=== PATIENT | female | born 1995 ===

== ENCOUNTER 2019-03-18 02:40 | Inpatient (IN) ==
[2019-03-18] MEDS ORDERED: MAGNESIUM HYDROXIDE SUSP 30 ML UDC PO PRN (03:00)
[2019-03-18] MEDS ORDERED: ALUMINUM/MAGNESIUM SUSP 30 ML UDC PO PRN (03:00)
[2019-03-18] MEDS ORDERED: SODIUM CHLORIDE 0.65% NA SOLN 45 ML (OCEAN) PRN (03:00)
[2019-03-18] MEDS ORDERED: BISMUTH SUBSALICYLATE PER ML OMNICELL CHARGE PO PRN (03:00)
[2019-03-18] MEDS ORDERED: NICOTINE POLACRILEX 2 MG GUM MT PRN (03:00)
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
[2019-03-18] MEDS: NICOTINE 7 MG/24 HR TDSY TD SCH (10:52)
[2019-03-18] MEDS: lamoTRIgine 25 MG TAB PO SCH (12:11)
[2019-03-19] MEDS ORDERED: SERTRALINE HCL 50 MG TABLET PO SCH (09:00)
[2019-03-19] MEDS: lamoTRIgine 25 MG TAB PO SCH (09:10)
[2019-03-19] MEDS: NICOTINE 7 MG/24 HR TDSY TD SCH (09:11)
[2019-03-19] MEDS: ACETAMINOPHEN 325 MG TAB PO PRN (12:37)
--- NOTE | 2019-03-19 15:26 | Psychiatric Progress Note ---
Date of Service March 19, 2019 Impression / Recommendations (1) Depression: 03/18 - Reviewed the differential, including bipolar disorder. Patient has a strong family history of bipolar disorder first degree relatives, and endorses episodes of manic symptoms, but does not meet full criteria for ángel or even hypomania based on the duration of these episodes (maximum 2 days). Definitive diagnosis further complicated by polysubstance use, which is ongoing. We discussed treatment options, including a trial of an SSRI antidepressant to target depressive and anxiety symptoms (which she has never had, as she was initially treated with an SNRI and an atypical antipsychotic) either alone with close monitoring for activation/mood destabilization, or along with a mood stabilizer. We specifically discussed a trial of lamotrigine and sertraline, reviewed the risks, benefits, and side effects of each, and she was provided with up-to-date patient hand outs on the medications. She agreed to a trial of both medications, and will start 25 mg sertraline today, to increase to 50 mg tomorrow. Start lamotrigine 25 mg daily s and follow standard dose titration, increasing to 50 mg daily in 2 weeks. Reviewed risk of Burch-Rito syndrome and need to report any rashes to staff immediately. -Get collateral information from the patient's mother regarding mood symptoms to help clarify diagnosis. -Request records from [facility] psychiatric unit where she was hospitalized in 2018, and [facility] where she has been seen for outpatient care in the past. -Family meeting with mother. Reviewed recommendations that guns in the home be secured so the patient will not have access to them. -Refer for outpatient treatment; patient states preference to return to [facility]. -Encourage group attendance and participation, work on healthy coping skills and discharge safety plan. 03/19 - Pt agreeable to titration of sertraline to 50mg tomorrow morning; continue lamotrigine at 25mg daily - Family meeting with mother scheduled for 03/21 - Limited group participation today as not feeling well physically; encourage engagement in groups as patient feels able (2) Anxiety: 03/18 -anxiety NOS, with symptoms of JANET, panic symptoms that do not quite rise to the level of panic attacks, and subsyndromal PTSD. -Reviewed that first line treatment is an SSRI antidepressant, which she has never tried before. Start sertraline as above. -Work on coping skills for managing acute anxiety. -Encourage abstinence from substances, as can worsen anxiety. -Patient states hydroxyzine is not effective for her, and requested lorazepam. Reviewed that benzodiazepines are contraindicated given her substance use, as well as the risks of benzodiazepine use and preference to avoid medications that are addictive or abusable. Reviewed other options for as needed medications for high anxiety, and she agreed to a trial of propanolol. Start 10 mg twice daily as needed. Monitor blood pressure, which is in the normal range currently. 03/19 - As above, sertraline titrated to 50mg starting tomorrow - Encourage development of healthy and effective coping strategies through group participation (3) Cocaine abuse: 03/18 -patient reports rare cocaine use, but UDS positive and likely contributing to anxiety and depression. Reviewed risks of use and recommendations to abstain. -Refer for outpatient dual diagnosis treatment as above. (4) Cannabis abuse: 03/18 -patient reports regular cannabis use for the past 3 years, and feels it is helpful for sleep and appetite. Discussed that it does not appear to be sufficiently helpful, as are still impaired, and that the symptoms can be addressed with medication and therapy. -Reviewed risks of ongoing cannabis use, including a motivation, apathy, psychosis, worsening mood, interactions with medications, and legal problems. Reviewed recommendations to abstain for the time being until she stabilizes, and she indicates willingness to do this. (5) Heroin abuse: 03/18 -history of opiate addiction, last use about 1 year ago. -Avoid controlled substances given the high risk of abuse/misuse/negative outcomes. (6) Sexually active: 03/18 - Has an OB-THERAPIST RADIATION (Dr. Gomez) in [facility] and will need to f/u with him for contraception and annual exam. Risk Factors Assessment Male: No : Yes Do You Have Access To A Gun?: Yes (in parents' house) Health Problems: No Mental Health Diagnoses: Yes Substance Use Disorders: Yes Previous Attempt: No Family History of Suicide: No Previous Psychiatric Hospitalization: Yes Hopelessness: No Smoker: Yes Protective Factors Assessment : No Responsible for Young Children: No Employed: No Stable Relationships: No Supportive Family: Yes Good Rapport with Provider: No Interval History Identifying Information TRINITY RIVAS is a 23-year-old F who currently lives in [place], [place], has a history of depression, anxiety, and heroin abuse, and was admitted on 03/18/19 03:44 on a 201 voluntary commitment for depression and SI. Chief Complaint "I'm ok. I just haven't been feeling very good today." Review of Systems Notes Constitutional: reports current headache; improvement noted since earlier today Cardiovascular: denied Respiratory: denied Gastrointestinal: denied Neurological: denied Psychiatric: denies symptoms other than stated above Total of at least 10 systems reviewed, pertinent positives as above and in HPI. Sleep Information Total Hours of Sleep: 8 Sleep Comments: admit at 0341 Meal Information Percent Meal Consumed - Breakfast: 100 Percent Meal Consumed - Lunch: 75 Percent Meal Consumed - Dinner: 100 Nutrition Comment: pt. asleep Meal dated, labeled and refrigerated Subjective Subjective Patient was seen & assessed and interval progress reviewed with treatment team. Staff reports the patient has been in contact with her family and is willing to schedule a family meeting with her mom. Patient was seen today to assess progress since admission. Pt states she is feeling "better" since initial mood at admission; however, she reports she is not feeling well physically today. Pt reports a severe headache, which she states is not uncommon for her. She does not believe that her physical symptoms are related to initiation of medications. Mood is reportedly "better" - rating it a "6-7" out of 10 (10=best). Pt reports a comfortable mood for her is "about an 8, I think." Pt denies any destabilization or activation with medication adjustments. Pt denies suicidality today. She denies other needs or concerns presently. Physical Exam Psychiatric Orientation: alert, oriented x 3 and cooperative (and pleasant) Apperance: appropriately dressed (casually), appropriately groomed, + disheveled (mildly, as just awoken from sleep) and appeared stated age Eye Contact: good eye contact Motor Behavior: no abnormal motor movements (observed while laying in bed) Speech: normal rate/rhythm/volume of speech Affect: + depressed affect (reporting improvement since admission) and + blunted affect (mildly, appearing somewhat fatigued) Mood: no depressed mood and no anxious mood "I'm feeling better." Thought Process: goal directed thought process, linear/logical thought process and clear/coherent thought process Thought Content: reality based without delusions Suicidal Thoughts: denies suicidal thoughts Homicidal Thoughts: denies homicidal thoughts Hallucinations: no auditory hallucinations and no visual hallucinations Cognition: recent memory grossly intact, attention grossly intact and language grossly intact Estimated Intelligence: consistent with education level Insight: + fair insight Judgement: + fair judgement Vital Signs (Past 24 Hours) Last Vital Signs Temp 36.7 C 03/19/19 06:26 Pulse 60 03/19/19 06:26 Resp 17 03/19/19 06:26 BP 108/73 03/19/19 06:26 Results & Data Current Inpatient Medications Current Inpatient Medications: Current Inpatient Medications Acetaminophen (Tylenol) 650 mg PO Q4H PRN PRN Reason: Headache or Minor Fever Stop: 04/17/19 02:59 Last Admin: 03/19/19 12:37 Dose: 650 mg Documented by: Al Hydrox/Mg Hydrox/Simethicone (Maalox) 30 ml PO Q4H PRN PRN Reason: GI Upset Stop: 04/17/19 02:59 Bismuth Subsalicylate (Kaopectate) 15 ml PO PRN PRN PRN Reason: Loose Stool Stop: 04/17/19 02:59 Hydroxyzine HCl (Vistaril) 50 mg PO HSZ PRN PRN Reason: Insomnia Stop: 04/17/19 02:59 Last Admin: 03/18/19 21:19 Dose: 50 mg Documented by: Lamotrigine (Lamictal) 25 mg PO QAM [facility] Stop: 04/17/19 11:14 Last Admin: 03/19/19 09:10 Dose: 25 mg Documented by: Magnesium Hydroxide (Milk Of Magnesia) 30 ml PO DAILY PRN PRN Reason: Heartburn Stop: 04/17/19 02:59 Miscellaneous (Remove Nicoderm Patch) 1 ea N/A DAILY@2200 [facility] Stop: 04/17/19 21:59 Last Admin: 03/18/19 21:17 Dose: Not Given Documented by: Nicotine (Nicoderm Cq) 7 mg TD QAM [facility] Stop: 04/17/19 08:59 Last Admin: 03/19/19 09:11 Dose: Not Given Documented by: Nicotine Polacrilex (Nicorette 2mg) 1 piece MT UD PRN PRN Reason: Nicotine Withdrawal Stop: 04/17/19 02:59 Last Admin: 03/19/19 12:38 Dose: 1 piece Documented by: Propranolol HCl (Inderal) 10 mg PO BID PRN PRN Reason: panic Stop: 04/17/19 20:59 Sertraline HCl (Zoloft) 25 mg PO QAM [facility] Stop: 04/18/19 08:59 Last Admin: 03/19/19 09:11 Dose: 25 mg Documented by: Sodium Chloride (Dade Nasal) 1 - 2 sprays NA PRN PRN PRN Reason: Nasal Dryness/Congestion Stop: 04/17/19 02:59 Mental Health & Subst Abuse Tx Psychiatrist Name of Psychiatrist: Aniceto Larson Psychiatrist's Date of Appointment with Psychiatrist: 04/16/19 Time of Appointment with Psychiatrist: 1:00 p.m. Psychiatric Appointment Comment: Salty Piper [place] Therapist Name of Therapist: Aniceto Gomez Therapist's Date of Therapist Appointment: 03/26/19 Time of Therapist Appointment: 12:30 p.m. (please come 15 min early, bring insurance card) Therapy Appointment Comment: [facility] Salty Weir [place] Commercial Correspondent Name of Commercial Correspondent: denies Post Discharge Appointments Primary Care Physician Name Of Family Doctor: denies Specialist Name of Specialist: [facility] [employer]STATION MAINTENANCE TECHNICIAN [facility] Phone Number for Specialist: [phone] Date of Appointment with Specialist: 04/04/19 Time of Appointment with Specialist: 9:30 a.m. Specialty Appointment Comment: [address] [place], [place] [address] [address] Contact Information Discharge Discharge [address]: [address] [place] [address] CPT Code CPT Code 96553 (1) Depression Depression Type: unspecified Qualified Code(s): F32.9 - Major depressive disorder, single episode, unspecified
[2019-03-19] MEDS: PROPRANOLOL HCL 10 MG TAB PO PRN (21:35)
[2019-03-20] MEDS: lamoTRIgine 25 MG TAB PO SCH (08:52)
[2019-03-20] MEDS: NICOTINE 7 MG/24 HR TDSY TD SCH (08:52)
[2019-03-20] MEDS ORDERED: SERTRALINE HCL 50 MG TABLET PO SCH (09:00)
[2019-03-20] MEDS: PROPRANOLOL HCL 10 MG TAB PO PRN (11:38)
[2019-03-20] MEDS ORDERED: BACITRACIN OINT 15 GM TUBE EXT PRN (11:46)
--- NOTE | 2019-03-20 11:49 | Psychiatric Progress Note ---
Date of Service March 20, 2019 Impression / Recommendations (1) Depression: 03/18 - Reviewed the differential, including bipolar disorder. Patient has a strong family history of bipolar disorder first degree relatives, and endorses episodes of manic symptoms, but does not meet full criteria for ángel or even hypomania based on the duration of these episodes (maximum 2 days). Definitive diagnosis further complicated by polysubstance use, which is ongoing. We discussed treatment options, including a trial of an SSRI antidepressant to target depressive and anxiety symptoms (which she has never had, as she was initially treated with an SNRI and an atypical antipsychotic) either alone with close monitoring for activation/mood destabilization, or along with a mood stabilizer. We specifically discussed a trial of lamotrigine and sertraline, reviewed the risks, benefits, and side effects of each, and she was provided with up-to-date patient hand outs on the medications. She agreed to a trial of both medications, and will start 25 mg sertraline today, to increase to 50 mg tomorrow. Start lamotrigine 25 mg daily s and follow standard dose titration, increasing to 50 mg daily in 2 weeks. Reviewed risk of Burch-Rito syndrome and need to report any rashes to staff immediately. -Get collateral information from the patient's mother regarding mood symptoms to help clarify diagnosis. -Request records from [facility] psychiatric unit where she was hospitalized in 2018, and [facility] where she has been seen for outpatient care in the past. -Family meeting with mother. Reviewed recommendations that guns in the home be secured so the patient will not have access to them. -Refer for outpatient treatment; patient states preference to return to [facility]. -Encourage group attendance and participation, work on healthy coping skills and discharge safety plan. 03/19 - Pt agreeable to titration of sertraline to 50mg tomorrow morning; continue lamotrigine at 25mg daily - Family meeting with mother scheduled for 03/21 - Limited group participation today as not feeling well physically; encourage engagement in groups as patient feels able 03/20 - Sertraline discontinued due to concern that initiation of the medication may be contributing to patient's suicidal urges and self-harm episode - Continue lamotrigine 25mg daily for now - Family meeting with mother is scheduled for 03/21 - Continue to gather collateral information to clarify diagnosis (2) Anxiety: 03/18 -anxiety NOS, with symptoms of JANET, panic symptoms that do not quite rise to the level of panic attacks, and subsyndromal PTSD. -Reviewed that first line treatment is an SSRI antidepressant, which she has never tried before. Start sertraline as above. -Work on coping skills for managing acute anxiety. -Encourage abstinence from substances, as can worsen anxiety. -Patient states hydroxyzine is not effective for her, and requested lorazepam. Reviewed that benzodiazepines are contraindicated given her substance use, as well as the risks of benzodiazepine use and preference to avoid medications that are addictive or abusable. Reviewed other options for as needed medications for high anxiety, and she agreed to a trial of propanolol. Start 10 mg twice daily as needed. Monitor blood pressure, which is in the normal range currently. 03/19 - As above, sertraline titrated to 50mg starting tomorrow - Encourage development of healthy and effective coping strategies through group participation 03/20 - Discontinued sertraline as above - Pt requested and received propranolol after incident involving episode of self-injurious behavior (3) Cocaine abuse: 03/18 -patient reports rare cocaine use, but UDS positive and likely contributing to anxiety and depression. Reviewed risks of use and recom mendations to abstain. -Refer for outpatient dual diagnosis treatment as above. (4) Cannabis abuse: 03/18 -patient reports regular cannabis use for the past 3 years, and feels it is helpful for sleep and appetite. Discussed that it does not appear to be sufficiently helpful, as are still impaired, and that the symptoms can be addressed with medication and therapy. -Reviewed risks of ongoing cannabis use, including a motivation, apathy, psychosis, worsening mood, interactions with medications, and legal problems. Reviewed recommendations to abstain for the time being until she stabilizes, and she indicates willingness to do this. (5) Heroin abuse: 03/18 -history of opiate addiction, last use about 1 year ago. -Avoid controlled substances given the high risk of abuse/misuse/negative outcomes. (6) Self-inflicted injury: 03/20 - Patient admitted to using a broken toothbrush and broken pencil to scratch and open the skin of her left anterior forearm - She has a vertical open lesion, about 3 inches in length. Blood within the lesion is noted, but there is no active bleeding - Wound has been cleaned and dressed by nursing; bacitracin ordered for future dressing changes to prevent infection - Will remove contraband from patient's room (roommate understanding) for the remainder of the day until ability to contract for safety can be confirmed (7) Sexually active: 03/18 - Has an OB-MONITORING ANALYST (Dr. Gomez) in [facility] and will need to f/u with him for contraception and annual exam. Risk Factors Assessment Male: No : Yes Do You Have Access To A Gun?: Yes (in parents' house) Health Problems: No Mental Health Diagnoses: Yes Substance Use Disorders: Yes Previous Attempt: No Family History of Suicide: No Previous Psychiatric Hospitalization: Yes Hopelessness: No Smoker: Yes Protective Factors Assessment : No Responsible for Young Children: No Employed: No Stable Relationships: No Supportive Family: Yes Good Rapport with Provider: No Interval History Identifying Information TRINITY RIVAS is a 23-year-old F who currently lives in [place], [place], has a history of depression, anxiety, and heroin abuse, and was admitted on 03/18/19 03:44 on a 201 voluntary commitment for depression and SI. Chief Complaint [sobbing] "I need to tell on myself, I tried to do something to hurt myself. I need to talk to someone." Review of Systems Notes Constitutional: reports feeling tired Cardiovascular: denied Respiratory: denied Gastrointestinal: denied Neurological: denied Psychiatric: denies symptoms other than stated above Integumentary: self-inflicted lesion to left anterior forearm, no active bleeding but surface of skin is broken; reporting it is painful Total of at least 10 systems reviewed, pertinent positives as above and in HPI. Sleep Information Total Hours of Sleep: 8 Sleep Comments: admit at 0341 Meal Information Percent Meal Consumed - Breakfast: 50 Percent Meal Consumed - Lunch: 75 Percent Meal Consumed - Dinner: 90 Nutrition Comment: pt. asleep Meal dated, labeled and refrigerated Subjective Subjective Patient was seen & assessed and interval progress reviewed with nursing and social work. Staff reports the patient is scheduled for a family meeting with her mother tomorrow. She has been attending groups and is supportive of peers. Patient presented to the nursing station today, while this provider was sitting closest to the door. Pt stated, "I need to tell on myself, I tried to do something to hurt myself. I need to talk to someone. I don't think the medications are working." She showed this provider a excoriation/laceration to her left anterior forearm, a linear wound breaking the skin. This provider requested nursing gather material to clean and dress the wound while this provider and the patient discussed further. Pt states that she is not sure why she did it, repeating multiple times "I've never tried to hurt myself before." Pt states "I don't want to be alive" - but then verbalizes that this is confusing to her, as "I have a good life, I have a lot to live for. I don't want to , I don't know why I did it." Pt was asked her intent during the time of the injury - to which she responded, "I have no idea." She continues to cry and verbalize confusion regarding her actions. Pt states she has been having disturbing dreams involving her ex and/or her father. Patient was asked what she used to harm herself, and responded, "I used a toothbrush first, but it didn't work. Then I used a pencil, but that didn't really work either. It really hurts." Pt reiterates that the feeling that led to this action is "new, I've never tried to actually hurt myself before." Surprisingly, the patient denies suicidal ideation and continues to verbalize "I have a lot to live for." Patient's wound was cleaned and dressed by nursing and patient was escorted to the safe room at her preference. Contraband was removed from her room and patient was informed of this. She is now able to contract for safety, stating she is no longer having these urges, but prefers to be in the safe room. Staff will remain with her for a period of time to process further. Physical Exam Psychiatric Orientation: alert, oriented x 3 and cooperative Apperance: appropriately dressed (casually, in long-sleeved t-shirt and sweatpants), + disheveled (hair in messy bun) and appeared stated age Eye Contact: + poor eye contact (face down, crying into hands) Motor Behavior: steady gait and station and no abnormal motor movements Speech: normal rate/rhythm/volume of speech Affect: + anxious affect and + tearful affect Mood: + anxious mood ("I need to talk to someone, this isn't normal") Thought Process: goal directed thought process and clear/coherent thought process Thought Content: reality based without delusions Suicidal Thoughts: denies suicidal thoughts and denies suicidal intent Patient denying SI, but did have an episode of self-injury with unclear motivation - denies intent to end her life but admits to being confused by current feelings Homicidal Thoughts: denies homicidal thoughts Hallucinations: no auditory hallucinations and no visual hallucinations Cognition: attention grossly intact and language grossly intact Estimated Intelligence: consistent with education level Insight: + impaired insight Judgement: + impaired judgement (though demonstrated good judgment by informing staff of self-injury) Vital Signs (Past 24 Hours) Last Vital Signs Temp 36.8 C 03/20/19 06:00 Pulse 68 03/20/19 06:40 Resp 17 03/20/19 06:00 BP 101/68 03/20/19 06:40 Results & Data Current Inpatient Medications Current Inpatient Medications: Current Inpatient Medications Acetaminophen (Tylenol) 650 mg PO Q4H PRN PRN Reason: Headache or Minor Fever Stop: 04/17/19 02:59 Last Admin: 03/19/19 12:37 Dose: 650 mg Documented by: Al Hydrox/Mg Hydrox/Simethicone (Maalox) 30 ml PO Q4H PRN PRN Reason: GI Upset Stop: 04/17/19 02:59 Bacitracin (Bacitracin) 1 appln EXT TID PRN PRN Reason: prevent skin infection/cut Stop: 04/19/19 11:45 Bismuth Subsalicylate (Kaopectate) 15 ml PO PRN PRN PRN Reason: Loose Stool Stop: 04/17/19 02:59 Hydroxyzine HCl (Vistaril) 50 mg PO HSZ PRN PRN Reason: Insomnia Stop: 04/17/19 02:59 Last Admin: 03/18/19 21:19 Dose: 50 mg Documented by: Lamotrigine (Lamictal) 25 mg PO QAM [place] Stop: 04/17/19 11:14 Last Admin: 03/20/19 08:52 Dose: 25 mg Documented by: Magnesium Hydroxide (Milk Of Magnesia) 30 ml PO DAILY PRN PRN Reason: Heartburn Stop: 04/17/19 02:59 Miscellaneous (Remove Nicoderm Patch) 1 ea N/A DAILY@2200 ARLET Stop: 04/17/19 21:59 Last Admin: 03/19/19 21:36 Dose: Not Given Documented by: Nicotine (Nicoderm Cq) 7 mg TD QAM [facility] Stop: 04/17/19 08:59 Last Admin: 03/20/19 08:52 Dose: Not Given Documented by: Nicotine Polacrilex (Nicorette 2mg) 1 piece MT UD PRN PRN Reason: Nicotine Withdrawal Stop: 04/17/19 02:59 Last Admin: 03/19/19 12:38 Dose: 1 piece Documented by: Propranolol HCl (Inderal) 10 mg PO BID PRN PRN Reason: panic Stop: 04/17/19 20:59 Last Admin: 03/20/19 11:38 Dose: 10 mg Documented by: Sertraline HCl (Zoloft) 50 mg PO QAM [place] Stop: 04/19/19 08:59 Last Admin: 03/20/19 08:52 Dose: 50 mg Documented by: Sodium Chloride ([place] Nasal) 1 - 2 sprays NA PRN PRN PRN Reason: Nasal Dryness/Congestion Stop: 04/17/19 02:59 Mental Health & Subst Abuse Tx Psychiatrist Name of Psychiatrist: Aniceto Larson Psychiatrist's Date of Appointment with Psychiatrist: 04/16/19 Time of Appointment with Psychiatrist: 1:00 p.m. Psychiatric Appointment Comment: [address] [place], [place] [address] Therapist Name of Therapist: Aniceto Gomez Therapist's Date of Therapist Appointment: 03/26/19 Time of Therapist Appointment: 12:30 p.m. (please come 15 min early, bring insurance card) Therapy Appointment Comment: [address] [place], [place] [address] Training And Documentation Specialist Name of Training And Documentation Specialist: denies Post Discharge Appointments Primary Care Physician Name Of Family Doctor: denies Specialist Name of Specialist: [facility] [employer]GG[employer] OPERATOR [facility] Phone Number for Specialist: [phone] Date of Appointment with Specialist: 04/04/19 Time of Appointment with Specialist: 9:30 a.m. Specialty Appointment Comment: [address] [facility] [place] [address] Contact Information Discharge Discharge [address]: [address] [place] [id number] CPT Code CPT Code 41594 (1) Depression Depression Type: unspecified Qualified Code(s): F32.9 - Major depressive disorder, single episode, unspecified
[2019-03-20] MEDS: ACETAMINOPHEN 325 MG TAB PO PRN (14:43)
[2019-03-21] MEDS: ACETAMINOPHEN 325 MG TAB PO PRN (09:04)
[2019-03-21] MEDS: lamoTRIgine 25 MG TAB PO SCH (09:05)
[2019-03-21] MEDS: NICOTINE 7 MG/24 HR TDSY TD SCH (09:14)
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
[2019-03-22] MEDS ORDERED: VENLAFAXINE HCL XR 75 MG CAPXR PO SCH (09:00)
[2019-03-22] MEDS ORDERED: ARIPiprazole 5 MG TAB PO SCH (09:00)
== END 2019-03-21 10:40 | disposition home or self-care (01) | DRG 885 ==
LOC: 3S 03:44